=== PATIENT | male | born 1940 | race Caucasian/White ===

== ENCOUNTER 2017-04-22 06:34 | Observation (INO) | payer OTHER, MEDICARE ==
[~2017-04-22] VITALS: Ht 180.3 cm; Wt 72.1 kg
--- NOTE | ~2017-04-22 | EKG ---
[address] [place] [address] ELECTROCARDIOGRAM REPORT Name: LESLIE BAILEY Room #: 215-P [facility] M.R.#: [id number] Admission: 04/22/17 Attend Phys: Gato Tran MD, Discharge: 04/23/17 Date of : 38 Report #: [id number] THIS REPORT FOR: //name// [facility] Test Date: 2017-04-22 Test Time: 07:12:13 Pat Name: LESLIE BAILEY Department: Room: [facility][note 3] Gender: M Verification Manager: BS : 1940 Requested By: Gato Tran Order Number: [id number] MD: Kuldip Stoddard Measurements Intervals [place] Rate: 57 P: 41 CO: 241 QRS: -52 QRSD: 111 T: 51 QT: 447 QTc: 436 Interpretive Statements Sinus rhythm Prolonged CO interval Left anterior fascicular block Left ventricular hypertrophy Anterior Q waves, possibly due to LVH Compared to ECG 03/11/2014 07:42:47 Left ventricular hypertrophy now present Electronically Signed On 04-23-2017 18:13:20 CDT by Kuldip Stoddard [email or web address] <ELECTRONICALLY SIGNED> By: Kuldip Stoddard MD, [facility] 04/23/17 1813 1 1 Kuldip Stoddard MD, [facility] /EPI
--- NOTE | ~2017-04-22 | CATHLAB ---
[facility] [address] [place] [address] INVASIVE PROCEDURE REPORT Name: LESLIE BAILEY Room #: 215-P [facility] [place] .R.#: [id number] Admission: 04/22/17 Attend Phys: Gato Tran, Discharge: Date of : 38 Date of Service: 04/22/17 1253 Report #: [id number] THIS REPORT FOR: //name// APPROVED REPORT Patient Details Patient Status: Out-Patient Room #: The patient is a 77 year-old male Event Personnel Gato Tran Flash Drier Operator, Rosalba Rodriguez RN RN, Lorne Burden RN, Wesley Blanc, Anita Goodman Procedures Performed ANNA Place w/wo Plasty Single RCA [id number] Procedure Narrative The Right Groin^ was infiltrated with 1% Lidocaine subcutaneous anesthesia. A PINNACLE 6FR Sheath #[id number] sheath was inserted into the RFA^. Coronary angiography was performed using coronary diagnostic catheters. The right coronary system was accessed and visualized with a JR4 GUIDE catheter. The patient tolerated the procedure well and there were no complications associated with the procedure. Intraoperative Conscious Sedation Sedation start time: 8:18 Case end Time: 8:33 Fentanyl 50 mcg Versed 0.5 mg Fluoro Time: 3.03 minutes Dose: 315 mGy Contrast Type and Amount: Omnipaque 55 ml Hemodynamics The aortic pressure is 157/65 mmHg with a mean of 57 mmHg. PCI Technique Lesion Percutaneous coronary intervention was performed on the proximal right coronary artery. A LAUNCHER 6FR JR 4 #[id number] Guide Catheter was used to engage the RCA ostium. A LUGE Interventional Guidewire was used to cross the lesion. STENT DEPLOYMENT [facility] [place] [address] INVASIVE PROCEDURE REPORT Name: LEOLESLIE TIFFANY Room #: 215-P [facility]#: [id number] Admission: 04/22/17 Attend Phys: Gato Tran, Discharge: Date of : 38 Date of Service: 04/22/17 1253 Report #: [id number] A drug-eluting stent RESOLUTE OTW 2.75 X 12 #[id number] was inserted and inflated up to 16.00atm for 33seconds. Additional Inflation: 18.00atm for 26seconds. Conclusion #1 successful primary stent of proximal RCA lesion 80% to 0% with placement of a 2.75 x 12 resolute postdilated 3.0 mm in size QUINTON grade 3 flow. (This stent extended in a just slightly overlap the previously placed mid vessel stents. However this was a de kenneth lesion.) <ELECTRONICALLY SIGNED> By: Gato Tran MD, [facility] 04/22/17 1253 1253 1253 Gato Tran MD, FACC /INF
[~2017-04-22 06:34] MED LIST: ADULT LOW DOSE81 MG PO; ATIVAN0.5 MG PO; AVODART0.5 MG PO; BAYER CHEWABLE81 MG PO; BENICAR HCT 401 EAC1 PO; BYSTOLIC 5 MG5 M1 PO; BYSTOLIC10 MG PO; CENTRUM SILVER1 EAC4 PO; CIPRO500 M1 PO; EFFIENT10 MG PO; FISH OIL 1,001000 M2 PO; FLOMAX0.4 MG PO; HYDROCODONE-APA1 TA1 PO; LIVALO4 MG PO; NICOTINE TRANSD21 M1 TD; PLAVIX 75 MG TA75 M1 PO; PRILOSEC 20 MG20 MG PO; PROSCAR 5MG TABL5 MG PO; TRAZODONE HCL50 MG PO; VICODIN ES 7.51 EACH PO
[2017-04-22] MEDS ORDERED: NITROGLYCERIN0.4 MG SUBLING (07:00)
[2017-04-22] MEDS ORDERED: LIVALO4 MG PO (07:00)
[2017-04-22] MEDS ORDERED: BENICAR HCT 201 EACH PO (07:01)
[2017-04-22] MEDS ORDERED: ASPIR 8181 MG PO (07:03)
[2017-04-22] MEDS ORDERED: PROMETH-CODEIN 65 ML PO (07:05)
[2017-04-22] MEDS ORDERED: PROAIR RESPICL90 MCG IH (07:08)
[2017-04-22] MEDS ORDERED: OXYGEN MISCELL (07:09)
[2017-04-22] MEDS ORDERED: TRAMADOL 50 MG50 MG PO (07:09)
[2017-04-22] MEDS ORDERED: HYDROCODONE-APA1 TA1 PO (07:10)
[2017-04-22 07:40] LABS: HEMATOCRIT 36.5 % (42.0-52.0); HEMOGLOBIN 12.8 gm/dL (14.0-18.0); MCH 34.3 pg (26.0-34.0); MCHC 35.1 g/dL (28.0-37.0); RBC 3.72 mil/uL (4.50-6.00); RDW 13.7 % (10.5-14.5); WBC 6.4 thou/uL (4.0-11.0)
[2017-04-22 07:42] VITALS: BP 162/77
[2017-04-22 07:48] LABS: CALCIUM 9.7 mg/dL (8.5-10.1); CREATININE 0.8 mg/dL (0.7-1.3)
[2017-04-22 11:30] VITALS: BP 152/65
[2017-04-22 15:30] VITALS: BP 164/73
[2017-04-22 20:30] VITALS: BP 174/78
[2017-04-22 20:36] VITALS: BP 174/78
[2017-04-22 23:56] VITALS: BP 126/68
[2017-04-23] VITALS: BP 126/68
[2017-04-23 03:52] VITALS: BP 151/70
[2017-04-23 04:05] VITALS: BP 151/70
[2017-04-23 07:28] VITALS: BP 151/79
[2017-04-23] MEDS ORDERED: CLOPIDOGREL75 MG PO (07:52)
[2017-04-23] MEDS ORDERED: ASPIR 8181 MG PO (07:55)
[2017-04-23] MEDS ORDERED: PRAVACHOL80 MG PO (07:56)
[2017-04-23 11:35] VITALS: BP 165/79
[2017-04-23 12:05] VITALS: BP 165/79
== END 2017-04-23 12:48 | disposition home or self-care (01) ==
LOC: CATH 06:34 → 2N 11:21 → CATH 13:38 → 2N 04-23 12:48
PROVIDERS: Internal Medicine Cardiovascular Disease
DX: I25.10 Atherosclerotic heart disease of native coronary artery without angina pectoris (principal); I10 Essential (primary) hypertension; I73.9 Peripheral vascular disease, unspecified; E78.00 Pure hypercholesterolemia, unspecified; J44.9 Chronic obstructive pulmonary disease, unspecified; R31.9 Hematuria, unspecified; R33.9 Retention of urine, unspecified; N32.9 Bladder disorder, unspecified; F41.9 Anxiety disorder, unspecified; N40.0 Benign prostatic hyperplasia without lower urinary tract symptoms; G45.8 Other transient cerebral ischemic attacks and related syndromes; Z95.5 Presence of coronary angioplasty implant and graft

== ENCOUNTER → 2020-02-18 | Outpatient (CLI) | payer OTHER, MEDICARE ==
[~2020-02-18] MED LIST changes: +ASPIR 8181 MG PO; +BENICAR HCT 201 EACH PO; +CLOPIDOGREL75 MG PO; +NITROGLYCERIN0.4 MG SUBLING; +OXYGEN MISCELL; +PRAVACHOL80 MG PO; +PROAIR RESPICL90 MCG IH; +PROMETH-CODEIN 65 ML PO; +TRAMADOL 50 MG50 MG PO
== END ==
LOC: SJCVCIMAG 12-08 14:07
DX: I65.23 Occlusion and stenosis of bilateral carotid arteries (principal); R94.31 Abnormal electrocardiogram [ECG] [EKG]; I44.4 Left anterior fascicular block; I44.0 Atrioventricular block, first degree; I25.10 Atherosclerotic heart disease of native coronary artery without angina pectoris; J44.9 Chronic obstructive pulmonary disease, unspecified; I10 Essential (primary) hypertension; E78.00 Pure hypercholesterolemia, unspecified; F17.210 Nicotine dependence, cigarettes, uncomplicated; Z99.81 Dependence on supplemental oxygen; Z79.899 Other long term (current) drug therapy

== ENCOUNTER → 2020-03-09 | Outpatient (CLI) | payer OTHER, MEDICARE | LOC: SJCVCIMAG 03-08 09:16 | PROVIDERS: ATTEND Internal Medicine Cardiovascular Disease | DX: I70.203 Unspecified atherosclerosis of native arteries of extremities, bilateral legs (principal); I44.0 Atrioventricular block, first degree; I49.3 Ventricular premature depolarization; I25.10 Atherosclerotic heart disease of native coronary artery without angina pectoris; E78.5 Hyperlipidemia, unspecified; I10 Essential (primary) hypertension; J44.9 Chronic obstructive pulmonary disease, unspecified; F17.200 Nicotine dependence, unspecified, uncomplicated; Z79.899 Other long term (current) drug therapy ==

== ENCOUNTER → 2021-01-01 | Outpatient (CLI) | payer OTHER, MEDICARE ==
[~2021-01-01] MED LIST changes: +KLOR-CON 10 ER10 MEQ PO; +LORAZEPAM 0.50.5 MG PO; +METOPROLOL SUCC50 MG PO; +PRAVASTATIN SOD80 MG PO; +PROTONIX40 M2 PO
== END ==
LOC: SJCVC 11:44
PROVIDERS: ATTEND Internal Medicine Cardiovascular Disease
DX: R94.31 Abnormal electrocardiogram [ECG] [EKG] (principal); I25.10 Atherosclerotic heart disease of native coronary artery without angina pectoris; I10 Essential (primary) hypertension; I73.9 Peripheral vascular disease, unspecified; I65.23 Occlusion and stenosis of bilateral carotid arteries; E78.00 Pure hypercholesterolemia, unspecified; J44.9 Chronic obstructive pulmonary disease, unspecified; R91.1 Solitary pulmonary nodule; F17.210 Nicotine dependence, cigarettes, uncomplicated; Z79.899 Other long term (current) drug therapy; Z88.8 Allergy status to other drugs, medicaments and biological substances